=== PATIENT | male | born 2000 | race Caucasian/White ===

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

== ENCOUNTER 2018-01-23 07:40 | Emergency (ER) | payer OTHER ==
[2018-01-23 09:06] LABS: CONTROL LINE MONO INT CTR LINE PRESENT; MONO SCRN NEGATIVE (NEGATIVE)
== END 2018-01-23 09:20 | disposition home or self-care (01) ==
LOC: M ED 07:40
DX: J02.9 Acute pharyngitis, unspecified (principal); E11.9 Type 2 diabetes mellitus without complications; J45.909 Unspecified asthma, uncomplicated; E03.9 Hypothyroidism, unspecified; F32.9 Major depressive disorder, single episode, unspecified; R69 Illness, unspecified; M54.9 Dorsalgia, unspecified; F17.200 Nicotine dependence, unspecified, uncomplicated; Z79.4 Long term (current) use of insulin
CPT/HCPCS: 86308

== ENCOUNTER → 2018-07-02 | Outpatient (REF) | payer OTHER ==
[~2018-07-02] MED LIST changes: -ACET1TAB17 PO; +ACET1TAB55 PO; +AMOX500T PO; +DOXY100T PO; +INSUHUMDS SC; +NAPR-885 PO; +ROBA500T PO; +ZOFR4TAB14 PO
== END ==
LOC: M LAB REF 17:19
PROVIDERS: ATTEND Physician Assistant Medical
DX: J02.9 Acute pharyngitis, unspecified (principal)

== ENCOUNTER 2018-08-21 14:00 | Emergency (ER) | payer OTHER ==
[~2018-08-21] VITALS: Ht 175.3 cm; Wt 60.6 kg
[2018-08-21] MEDS ORDERED: TRES1INJ2 SQ (14:26)
[2018-08-21] MEDS ORDERED: LEVO50TA5 PO (14:26)
[2018-08-21 17:15] VITALS: BP 123/61
== END 2018-08-21 17:15 | disposition home or self-care (01) ==
LOC: M ED 14:00
DX: F32.9 Major depressive disorder, single episode, unspecified (principal); Z79.4 Long term (current) use of insulin; Z79.899 Other long term (current) drug therapy; Z88.0 Allergy status to penicillin

== ENCOUNTER 2019-06-20 08:45 | Inpatient (IN) | payer OTHER, SELFPAY ==
[~2019-06-20] VITALS: Ht 175.3 cm; Wt 57.0 kg
[~2019-06-20 08:45] MED LIST changes: +LEVO50TA5 PO; +TRES1INJ2 SQ
[2019-06-20] MEDS ORDERED: NS 1,000 ML IV ONE ×2 (09:00→10:15)
[2019-06-20] MEDS ORDERED: NOVOINJ3 SC (09:10)
[2019-06-20 10:09] LABS: VENOUS BASE EXCESS -14.3 (-2.0-2.0); VENOUS HCO3 11.2 MEQ/L (23.0-27.0); VENOUS O2 SATURATION 77.6 % (60.0-80.0); VENOUS PARTIAL PRESSURE CO2 26.9 mmHg (38.0-50.0); VENOUS PARTIAL PRESSURE O2 45.3 mmHg (30.0-50.0); VENOUS PH 7.236 UNITS (7.330-7.430); VENOUS STANDARD HCO3 13.5 MEQ/L
[2019-06-20] MEDS ORDERED: INSULIN IV RATE CHANGE DOCUMENTATION ML/HR XX SCH (10:15)
[2019-06-20] MEDS ORDERED: INSULIN HUMAN REGULAR 100 UNITS in NS 99 ML IV SCH ×4 (10:15→12:17)
--- NOTE | 2019-06-20 10:19 | REP ---
CHEST SINGLE VIEW: There is no evidence of acute infiltrate. No pleural effusion is seen. The heart is normal in size. The mediastinal silhouette is unremarkable. The visualized osseous structures are intact. IMPRESSION: No acute pulmonary disease. Electronically Signed by Marco Antonio Rosado MD 06/20/2019 10:36 A
[2019-06-20 10:22] LABS: BASO # 0.1 10^3/uL (0.0-0.2); EOS # 0.1 10^3/uL (0.0-0.5); EOS % 0.9 % (0.0-3.0); HEMATOCRIT 49.8 % (42.0-52.0); HEMOGLOBIN 17.6 g/dl (13.5-17.5); LYMPH # 1.6 10^3/uL (1.5-5.0); LYMPH % 23.6 % (24.0-44.0); MEAN CORPUSCULAR HEMOGLOBIN 34.4 pg (27.0-33.0); MEAN CORPUSCULAR HGB CONC 35.3 g/dl (32.0-36.5); MEAN CORPUSCULAR VOLUME 97.5 fl (80.0-96.0); MONO # 0.5 10^3/uL (0.0-0.8); NEUTROPHILS # 4.5 10^3/uL (1.5-8.5); NEUTROPHILS % 66.5 % (36.0-66.0); PLATELET COUNT, AUTOMATED 464 10^3/uL (150-450); RED BLOOD COUNT 5.11 10^6/uL (4.30-6.10); WHITE BLOOD COUNT 6.7 10^3/uL (4.0-10.0)
[2019-06-20] MEDS ORDERED: D5W/0.45% SODIUM CHLORIDE 1,000 ML IV SCH ×2 (10:30→12:00)
[2019-06-20 10:55] LABS: ACETONE/KETONE > 46.00 MG/DL (<2.81); ALBUMIN 3.9 GM/DL (3.2-5.2); ALT/SGPT 64 U/L (12-78); BILIRUBIN,DIRECT 0.2 MG/DL (0.0-0.2); BILIRUBIN,TOTAL 0.8 MG/DL (0.2-1.0); BLOOD UREA NITROGEN 13 MG/DL (7-18); CALCIUM LEVEL 9.5 MG/DL (8.5-10.1); CARBON DIOXIDE LEVEL 12 MEQ/L (21-32); CHLORIDE LEVEL 104 MEQ/L (98-107); GLOMERULAR FILTRATION RATE > 60.0 (>60); GLUCOSE, FASTING 189 MG/DL (70-100); LIPASE 44 U/L (73-393); MAGNESIUM LEVEL 2.2 MG/DL (1.8-2.4); PHOSPHORUS LEVEL 3.3 MG/DL (2.5-4.9); POTASSIUM SERUM 4.2 MEQ/L (3.5-5.1); SODIUM LEVEL 138 MEQ/L (136-145); TOTAL PROTEIN 7.4 GM/DL (6.4-8.2)
[2019-06-20 11:14] LABS: HEMOGLOBIN A1c 10.4 %
--- NOTE | 2019-06-20 11:57 | HPEPDOC ---
[facility] Medical History & Physical Date of Admission Jun 20, 2019 Date of Service: Jun 20, 2019 History and Physical CHIEF COMPLAINT: nausea, vomiting HISTORY OF PRESENT ILLNESS: 19 yo male with PMHx type 1 DM, presents for several day history of nausea, progressing to vomiting, decreased oral intake. States his blood sugar was 466 at home. States he just moved back to [place] from [place]. Moved to [place] last October. Has been in DKA before, here at [facility] 2 years ago. Denies medical non-compliance. Denies any other medical complaints. PAST MEDICAL HISTORY: #type 1 DM ALLERGIES: Please see below. REVIEW OF SYSTEMS: Negative except as per HPI. HOME MEDICATIONS: Please see below. PHYSICAL EXAMINATION: VITAL SIGNS: See below General: NAD, lying comfortably in bed HEENT: NC/AT, EOMI, PERRL Lungs: CTA B/L Heart: +S1S2, RRR Abd: soft, NT, +BS Ext: no edema Skin: # tattoos LABORATORY DATA: See below. MICROBIOLOGY: Please see below. ASSESSMENT: 19 yo male with PMHx type 1 DM for DKA #DKA - ICU admit - insulin gtt - BMP q2h - D51/2 NS - clear liquid diet Vital Signs Vital Signs Date Time Temp Pulse Resp B/P (MAP) Pulse Ox O2 Delivery O2 Flow Rate FiO2 06/20/19 10:29 105 124/73 (90) 100 06/20/19 09:47 Room Air 06/20/19 09:42 24 06/20/19 08:56 99.1 Laboratory Data Labs 24H Laboratory Tests 2 06/20/19 09:00: Bedside Glucose (Misc Panel) 367H 06/20/19 09:33: POC Glucose (Misc Panel) 221H, POC Sodium (Misc Panel) 135L, POC Potassium (Misc Panel) 6.9*H, POC Chloride (Misc Panel) 108, POC Total CO2 (Misc Panel) 11.0L, POC Blood Urea Nitrogen (Misc Panel 16, POC Ionized Calcium (Misc Panel) 4.3L, POC Creatinine (Misc Panel) 0.7, POC Hematocrit (Misc Panel) 52.0H 06/20/19 09:37: Immature Granulocyte % (Auto) 1.0, Neutrophils (%) (Auto) 66.5H, Lymphocytes (%) (Auto) 23.6L, Monocytes (%) (Auto) 7.0H, Eosinophils (%) (Auto) 0.9, Basophils (%) (Auto) 1.0, Neutrophils # (Auto) 4.5, Lymphocytes # (Auto) 1.6, Monocytes # (Auto) 0.5, Eosinophils # (Auto) 0.1, Basophils # (Auto) 0.1, Nucleated Red Blood Cells % (auto) 0.0, Blood Gas Bicarbonate Standard 13.5, Venous Blood pH 7.236L, Venous Blood Partial Pressure CO2 26.9L, Venous Blood Partial Pressure O2 45.3, Venous Blood Total Carbon Dioxide 12.0L, Venous Blood HCO3 11.2L, Venous Blood Oxygen Saturation 77.6, Venous Blood Base Excess -14.3L 06/20/19 09:38: Anion Gap 22H, Glomerular Filtration Rate > 60.0, Estimated Mean Plasma Glucose 252H, Hemoglobin A1c 10.4, Calcium Level 9.5, Phosphorus Level 3.3, Magnesium Level 2.2, Total Bilirubin 0.8, Direct Bilirubin 0.2, Aspartate Amino Transf (AST/SGOT) 56H, Alanine Aminotransferase (ALT/SGPT) 64, Alkaline Phosphatase 161H, Total Protein 7.4, Albumin 3.9, Albumin/Globulin Ratio 1.11, Lipase 44L, B-Hydroxybutyrate > 46.00H 06/20/19 10:03: Bedside Glucose (Misc Panel) 149H 06/20/19 10:59: Bedside Glucose (Misc Panel) 176H CBC/BMP Laboratory Tests 06/20/19 09:37 06/20/19 09:38 Microbiology Microbiology 06/20/19 Blood Culture, Received Pending 06/20/19 Blood Culture, Received Pending Home Medications Scheduled Insulin Aspart (Novolog Flexpen) 100 Unit/1 Ml Insuln.pen, 1 DOSE SC AC per sliding scale Insulin Degludec (Tresiba Flextouch U-100) 100 Unit/1 Ml Insuln.pen, 25 UNITS SQ QHS Allergies Coded Allergies: amoxicillin (Verified Allergy, Intermediate, hives, 08/21/18) A-FIB/CHADSVASC A-FIB History Current/History of A-Fib/PAF?: No Current PO Anticoag Therapy: No VALERIO SOLOMON MD Jun 20, 2019 11:57
--- NOTE | 2019-06-20 12:21 | ECGEPIP ---
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
[2019-06-20 13:42] LABS: VENOUS BASE EXCESS -17.3 (-2.0-2.0); VENOUS HCO3 8.5 MEQ/L (23.0-27.0); VENOUS O2 SATURATION 97.4 % (60.0-80.0); VENOUS PARTIAL PRESSURE CO2 21.8 mmHg (38.0-50.0); VENOUS PH 7.208 UNITS (7.330-7.430); VENOUS STANDARD HCO3 11.9 MEQ/L; VENOUS TOTAL CO2 9.2 MEQ/L (24.0-28.0)
[2019-06-20] MEDS: INSULIN IV RATE CHANGE DOCUMENTATION ML/HR XX SCH ×3 (13:57→15:58)
[2019-06-20 14:14] VITALS: BP 112/71
[2019-06-20 14:17] LABS: BLOOD UREA NITROGEN 10 MG/DL (7-18); CALCIUM LEVEL 8.1 MG/DL (8.5-10.1); CARBON DIOXIDE LEVEL 10 MEQ/L (21-32); CHLORIDE LEVEL 110 MEQ/L (98-107); CREATININE FOR GFR 1.18 MG/DL (0.70-1.30); GLOMERULAR FILTRATION RATE > 60.0 (>60); GLUCOSE, FASTING 204 MG/DL (70-100); POTASSIUM SERUM 3.2 MEQ/L (3.5-5.1); SODIUM LEVEL 140 MEQ/L (136-145)
[2019-06-20] MEDS: PANTOPRAZOLE 40MG INJ (PROTONIX) (C9113) IV SCH (14:31)
[2019-06-20] MEDS ORDERED: POTASSIUM CHLORIDE 10% LIQ 20 MEQ/15 ML UDC PO ONE (15:00)
[2019-06-20 15:57] LABS: BLOOD UREA NITROGEN 9 MG/DL (7-18); CALCIUM LEVEL 7.7 MG/DL (8.5-10.1); CARBON DIOXIDE LEVEL 16 MEQ/L (21-32); CHLORIDE LEVEL 110 MEQ/L (98-107); CREATININE FOR GFR 1.22 MG/DL (0.70-1.30); GLOMERULAR FILTRATION RATE > 60.0 (>60); GLUCOSE, FASTING 93 MG/DL (70-100); POTASSIUM SERUM 3.6 MEQ/L (3.5-5.1); SODIUM LEVEL 140 MEQ/L (136-145)
[2019-06-20 16:00] VITALS: BP 115/70
[2019-06-20] MEDS ORDERED: DEXTROSE 50% 50 ML SYRINGE IV PRN (16:15)
[2019-06-20] MEDS ORDERED: GLUCOSE 4 GM CHEW TABLET PO PRN (16:15)
[2019-06-20] MEDS ORDERED: GLUCAGON FOR INJ 1 MG VIAL (J1610) SC PRN (16:15)
[2019-06-20] MEDS ORDERED: NS 1,000 ML IV SCH (16:30)
[2019-06-20] MEDS ORDERED: LEVEMIR (INSULIN DETEMIR) 1 UNITS/0.01ML SC ONE (17:00)
[2019-06-20] MEDS: HumaLOG INSULIN (NovoLOG) PER UNIT SC SCH (17:13)
[2019-06-20 19:06] LABS: BLOOD UREA NITROGEN 8 MG/DL (7-18); CALCIUM LEVEL 7.9 MG/DL (8.5-10.1); CARBON DIOXIDE LEVEL 20 MEQ/L (21-32); CHLORIDE LEVEL 110 MEQ/L (98-107); CREATININE FOR GFR 1.32 MG/DL (0.70-1.30); GLOMERULAR FILTRATION RATE > 60.0 (>60); GLUCOSE, FASTING 107 MG/DL (70-100); POTASSIUM SERUM 3.2 MEQ/L (3.5-5.1); SODIUM LEVEL 139 MEQ/L (136-145)
[2019-06-20 20:00] VITALS: BP 105/55
[2019-06-20] MEDS: KCL 40MEQ in NS 1000ML 1,000 ML IV SCH (20:11)
[2019-06-20] MEDS ORDERED: LEVEMIR (INSULIN DETEMIR) 1 UNITS/0.01ML SC SCH (21:00)
[2019-06-20] MEDS ORDERED: HumaLOG INSULIN (NovoLOG) PER UNIT SC SCH (21:00)
[2019-06-21] VITALS: BP 110/74
[2019-06-21 00:46] LABS: BLOOD UREA NITROGEN 7 MG/DL (7-18); CALCIUM LEVEL 8.6 MG/DL (8.5-10.1); CARBON DIOXIDE LEVEL 25 MEQ/L (21-32); CHLORIDE LEVEL 109 MEQ/L (98-107); CREATININE FOR GFR 1.19 MG/DL (0.70-1.30); GLOMERULAR FILTRATION RATE > 60.0 (>60); GLUCOSE, FASTING 81 MG/DL (70-100); SODIUM LEVEL 140 MEQ/L (136-145)
[2019-06-21 00:47] LABS: POTASSIUM SERUM 4.1 MEQ/L (3.5-5.1)
[2019-06-21] MEDS ORDERED: ACETAMINOPHEN TAB 650MG DOSE (2X325MG) PO ONE (03:00)
[2019-06-21 04:00] VITALS: BP 112/60
[2019-06-21 05:29] LABS: HEMATOCRIT 37.2 % (42.0-52.0); MEAN CORPUSCULAR HEMOGLOBIN 34.1 pg (27.0-33.0); MEAN CORPUSCULAR HGB CONC 35.5 g/dl (32.0-36.5); MEAN CORPUSCULAR VOLUME 96.1 fl (80.0-96.0); RED BLOOD COUNT 3.87 10^6/uL (4.30-6.10); WHITE BLOOD COUNT 6.1 10^3/uL (4.0-10.0)
[2019-06-21 05:47] LABS: HEMOGLOBIN 13.2 g/dl (13.5-17.5); PLATELET COUNT, AUTOMATED 315 10^3/uL (150-450)
[2019-06-21 06:01] LABS: BLOOD UREA NITROGEN 6 MG/DL (7-18); CALCIUM LEVEL 8.1 MG/DL (8.5-10.1); CARBON DIOXIDE LEVEL 26 MEQ/L (21-32); CHLORIDE LEVEL 112 MEQ/L (98-107); CREATININE FOR GFR 0.96 MG/DL (0.70-1.30); GLOMERULAR FILTRATION RATE > 60.0 (>60); GLUCOSE, FASTING 39 MG/DL (70-100); POTASSIUM SERUM 3.1 MEQ/L (3.5-5.1); SODIUM LEVEL 143 MEQ/L (136-145)
[2019-06-21] MEDS: KCL 40MEQ in NS 1000ML 1,000 ML IV SCH (06:13)
[2019-06-21] MEDS: POTASSIUM CHLORIDE 10 MEQ SR TABLET PO SCH ×2 (06:45→09:00)
[2019-06-21 08:00] VITALS: BP 114/76
[2019-06-21 08:11] LABS: MAGNESIUM LEVEL 1.8 MG/DL (1.8-2.4)
[2019-06-21] MEDS: PANTOPRAZOLE 40MG INJ (PROTONIX) (C9113) IV SCH (08:59)
[2019-06-21] MEDS: HumaLOG INSULIN (NovoLOG) PER UNIT SC SCH (08:59)
--- NOTE | 2019-06-21 11:18 | DS.PDOC ---
Discharge Summary General Date of Admission Jun 20, 2019 at 11:08 Date of Discharge 06/21/19 Discharge Summary PROCEDURES PERFORMED DURING STAY: [None]. ADMITTING DIAGNOSES: 1. DKA DISCHARGE DIAGNOSES: 1. DKA 2. electrolyte disturbance 3. medical non-compliance COMPLICATIONS/CHIEF COMPLAINT: Diabetic Ketoacidoses. Hospital Course: 19 yo male with PMHx type 1 DM, presents for several day history of nausea, progressing to vomiting, decreased oral intake. States his blood sugar was 466 at home. States he just moved back to [place] from [place]. Moved to [place] last October. Has been in DKA before, here at [facility] 2 years ago. Denies medical non-compliance. Denied any other medical complaints. DKA resolved with insulin gtt, electrolyte abnormalities improved. Patient on hospital day 2 adamant to leave, concerned about billing and ability to pay. Discussed at length at bedside regarding importance of staying in the hospital. Patient decided to leave against medical advice. Risks explained, including possible , patient voiced understanding. DISCHARGE MEDICATIONS: Please see below. ALLERGIES: Please see below. PHYSICAL EXAMINATION ON DISCHARGE: VITAL SIGNS: See below General: NAD, lying comfortably in bed HEENT: NC/AT, EOMI, PERRL Lungs: CTA B/L Heart: +S1S2, RRR Abd: soft, NT, +BS Ext: no edema Skin: # tattoos LABORATORY DATA: Please see below. ACTIVITY: [As tolerated]. DIET: carb consistent DISPOSITION: 07 Against Medical Advice. ITEMS TO FOLLOWUP ON ON OUTPATIENT: 1. Follow up with PCP in 3-5 days. 2. Recommend repeat BMP and magnesium in 3-5 days, to follow with PCP. TIME SPENT ON DISCHARGE: 35 minutes. Vital Signs/I&Os Vital Signs Date Time Temp Pulse Resp B/P (MAP) Pulse Ox O2 Delivery O2 Flow Rate FiO2 06/21/19 08:00 98.3 86 18 114/76 (89) 99 Room Air I&O- Last 24 Hours up to 6 AM 06/21/19 06:00 Intake Total 6088 ml Output Total 2200 ml Balance 3888 ml Laboratory Data Labs 24H Laboratory Tests 2 06/20/19 11:59: Bedside Glucose (Misc Panel) 251H 06/20/19 13:00: Bedside Glucose (Misc Panel) 298H 06/20/19 13:33: Blood Gas Puncture Site UNKNOWN, Blood Gas Bicarbonate Standard 11.9, Venous Blood pH 7.208L, Venous Blood Partial Pressure CO2 21.8L, Venous Blood Partial Pressure O2 106.0H, Venous Blood Total Carbon Dioxide 9.2L, Venous Blood HCO3 8.5L, Venous Blood Oxygen Saturation 97.4H, Venous Blood Base Excess -17.3L, Anion Gap 20H, Glomerular Filtration Rate > 60.0, Calcium Level 8.1L 06/20/19 13:56: Bedside Glucose (Misc Panel) 161H 06/20/19 14:58: Bedside Glucose (Misc Panel) 102 06/20/19 15:15: Anion Gap 14, Glomerular Filtration Rate > 60.0, Calcium Level 7.7L, Magnesium Level 1.8 06/20/19 15:52: Bedside Glucose (Misc Panel) 98 06/20/19 17:10: Bedside Glucose (Misc Panel) 147H 06/20/19 18:28: Anion Gap 9, Glomerular Filtration Rate > 60.0, Calcium Level 7.9L 06/20/19 20:54: Bedside Glucose (Misc Panel) 45L 06/20/19 20:59: Bedside Glucose (Misc Panel) 44L 06/20/19 21:17: Bedside Glucose (Misc Panel) 67L 06/21/19 00:02: Anion Gap 6L, Glomerular Filtration Rate > 60.0, Calcium Level 8.6 06/21/19 04:47: Anion Gap 5L, Glomerular Filtration Rate > 60.0, Calcium Level 8.1L, Nucleated Red Blood Cells % (auto) 0.0, Magnesium Level 1.8 06/21/19 04:50: Bedside Glucose (Misc Panel) 38*L 06/21/19 05:17: Bedside Glucose (Misc Panel) 83 CBC/BMP Laboratory Tests 06/20/19 13:33 06/20/19 15:15 06/20/19 18:28 06/21/19 00:02 06/21/19 04:47 FSBS Laboratory Tests Test 06/20/19 11:59 06/20/19 13:00 06/20/19 13:56 06/20/19 14:58 Range/Units Bedside Glucose (Misc Panel) 251 298 161 102 70-105 MG/DL Test 06/20/19 15:52 06/20/19 17:10 06/20/19 20:54 06/20/19 20:59 Range/Units Bedside Glucose (Misc Panel) 98 147 45 44 70-105 MG/DL Test 06/20/19 21:17 06/21/19 04:50 06/21/19 05:17 Range/Units Bedside Glucose (Misc Panel) 67 38 83 70-105 MG/DL Microbiology Microbiology 06/20/19 Blood Culture - Preliminary, Resulted No growth after 24 hours . All specim... 06/20/19 Blood Culture - Preliminary, Resulted No growth after 24 hours . All specim... Discharge Medications Scheduled Insulin Aspart (Novolog Flexpen) 100 Unit/1 Ml Insuln.pen, 1 DOSE SC AC, (Reported) per sliding scale Insulin Degludec (Tresiba Flextouch U-100) 100 Unit/1 Ml Insuln.pen, 25 UNITS SQ QHS, (Reported) Allergies Coded Allergies: amoxicillin (Verified Allergy, Intermediate, hives, 08/21/18) VALERIO SOLOMON MD Jun 21, 2019 11:18
[2019-06-21] MEDS ORDERED: LEVEMIR (INSULIN DETEMIR) 1 UNITS/0.01ML SC SCH (21:00)
== END 2019-06-21 10:25 | disposition left against medical advice (07) | DRG 420 ==
LOC: EDBD 08:45 → M ED 08:45 → M ED INP 11:08 → ENRESERV 11:56 → M ICU 13:35
PROVIDERS: ADMIT Internal Medicine; ATTEND Internal Medicine
DX: E10.10 Type 1 diabetes mellitus with ketoacidosis without coma (principal); E87.8 Other disorders of electrolyte and fluid balance, not elsewhere classified; Z79.4 Long term (current) use of insulin; Z88.1 Allergy status to other antibiotic agents; Z91.14 Patient's other noncompliance with medication regimen

== ENCOUNTER 2019-07-09 10:40 | Emergency (ER) | payer MEDICAID, SELFPAY ==
[~2019-07-09] VITALS: Ht 175.3 cm; Wt 64.2 kg
[~2019-07-09 10:40] MED LIST changes: +CYCL-707 PO; -CYCL10TA PO; +NOVOINJ3 SC
[2019-07-09 10:41] VITALS: BP 121/73
[2019-07-09] MEDS ORDERED: KETOROLAC TROMETHAMINE 10 MG TAB PO ONE (11:00)
[2019-07-09] MEDS ORDERED: NORC1TAB7 PO (12:00)
[2019-07-09] MEDS ORDERED: KETO10TAB PO (12:00)
--- NOTE | 2019-07-09 12:04 | REP ---
REASON: Pain after trauma. There is a distal clavicular fracture. The glenohumeral relationship is within normal limits. IMPRESSION: Distal clavicular fracture. Electronically Signed by Anjum Rosales DO 07/09/2019 12:06 P
--- NOTE | 2019-07-09 12:05 | REP ---
REASON: Trauma. There is a distal clavicular fracture. Three views of the right ribs snow no additional fractures. The accompanying frontal view of the chest is within normal limits. IMPRESSION: Distal clavicular fracture. Electronically Signed by Anjum Rosales DO 07/09/2019 02:49 P
--- NOTE | 2019-07-09 12:06 | REP ---
REASON: Pain after trauma. There is a fracture of the distal clavicle. Electronically Signed by Anjum Rosales DO 07/09/2019 02:49 P
== END 2019-07-09 12:10 | disposition home or self-care (01) ==
LOC: M ED 10:40
DX: S42.001A Fracture of unspecified part of right clavicle, initial encounter for closed fracture (principal); X58.XXXA Exposure to other specified factors, initial encounter; Y92.410 Unspecified street and highway as the place of occurrence of the external cause; Y93.51 Activity, roller skating (inline) and skateboarding; Y99.9 Unspecified external cause status; E10.9 Type 1 diabetes mellitus without complications; R56.9 Unspecified convulsions; J45.909 Unspecified asthma, uncomplicated; E03.9 Hypothyroidism, unspecified; F41.9 Anxiety disorder, unspecified; F17.200 Nicotine dependence, unspecified, uncomplicated; Z79.4 Long term (current) use of insulin; Z79.899 Other long term (current) drug therapy; Z88.0 Allergy status to penicillin

== ENCOUNTER 2021-08-07 11:03 | Inpatient (IN) | payer OTHER, MEDICAID ==
[~2021-08-07] VITALS: Ht 175.3 cm; Wt 58.0 kg
[~2021-08-07 11:03] MED LIST changes: +KETO10TAB PO; +NORC1TAB7 PO; +PANTOPRAZOLE 40MG VIAL IV SCH
[2021-08-07] MEDS ORDERED: HALOPERIDOL 5MG/ML VIAL (J1630 PER 1) IV STA (12:09)
[2021-08-07] MEDS ORDERED: NS 1,000 ML IV ONE (12:10)
[2021-08-07 13:04] LABS: VENOUS BASE EXCESS -10.9 (-2.0-2.0); VENOUS HCO3 15.2 MEQ/L (23.0-27.0); VENOUS O2 SATURATION 86.2 % (60.0-80.0); VENOUS PARTIAL PRESSURE CO2 34.9 mmHg (38.0-50.0); VENOUS PARTIAL PRESSURE O2 55.1 mmHg (30.0-50.0); VENOUS PH 7.256 UNITS (7.330-7.430); VENOUS STANDARD HCO3 15.9 MEQ/L; VENOUS TOTAL CO2 16.2 MEQ/L (24.0-28.0)
[2021-08-07 13:15] LABS: BASO # 0.1 10^3/uL (0.0-0.2); BASO % 1.1 % (0.0-1.0); EOS # 0.5 10^3/uL (0.0-0.5); EOS % 4.6 % (0.0-3.0); HEMATOCRIT 45.4 % (42.0-52.0); HEMOGLOBIN 16.2 g/dl (13.5-17.5); LYMPH # 2.7 10^3/uL (1.5-5.0); LYMPH % 23.3 % (24.0-44.0); MEAN CORPUSCULAR HEMOGLOBIN 31.8 pg (27.0-33.0); MEAN CORPUSCULAR HGB CONC 35.7 g/dl (32.0-36.5); MONO # 0.5 10^3/uL (0.0-0.8); MONO % 4.5 % (2.0-8.0); NEUTROPHILS # 7.6 10^3/uL (1.5-8.5); NEUTROPHILS % 66.1 % (36.0-66.0); PLATELET COUNT, AUTOMATED 375 10^3/uL (150-450); WHITE BLOOD COUNT 11.5 10^3/uL (4.0-10.0)
[2021-08-07] MEDS ORDERED: METOCLOPRAMIDE INJ 10MG/2ML VIAL (J2765 PER 1) IV ONE (13:40)
[2021-08-07 13:49] LABS: HEMOGLOBIN A1c 4.7 %
[2021-08-07 13:52] LABS: ALBUMIN 4.5 GM/DL (3.2-5.2); ALT/SGPT 17 U/L (12-78); BILIRUBIN,DIRECT 0.3 MG/DL (0.0-0.2); BLOOD UREA NITROGEN 20 MG/DL (7-18); CALCIUM LEVEL 10.2 MG/DL (8.5-10.1); CARBON DIOXIDE LEVEL 17 MEQ/L (21-32); CHLORIDE LEVEL 98 MEQ/L (98-107); CREATININE FOR GFR 1.07 MG/DL (0.70-1.30); GLOMERULAR FILTRATION RATE > 60.0 (>60); GLUCOSE, FASTING 497 MG/DL (70-100); POTASSIUM SERUM 4.4 MEQ/L (3.5-5.1); SODIUM LEVEL 134 MEQ/L (136-145); TOTAL PROTEIN 7.4 GM/DL (6.4-8.2)
[2021-08-07 13:54] LABS: ACETONE/KETONE > 46.00 MG/DL (<2.81); LIPASE 67 U/L (73-393)
[2021-08-07] MEDS ORDERED: INSULIN IV RATE CHANGE DOCUMENTATION ML/HR XX SCH ×2 (14:00→15:05)
[2021-08-07] MEDS ORDERED: INSULIN REGULAR IN 0.9 % NACL 100 UNIT in IV 1 EA IV SCH ×4 (14:00→15:05)
[2021-08-07] MEDS ORDERED: HumuLIN R (REGULAR) INSULIN (NovoLIN R) **100U/ML** PER UNIT IV ONE (14:00)
[2021-08-07 14:47] LABS: OSMOLALITY SERUM 312 MOSM/KG (275-295)
[2021-08-07 14:56] LABS: APPEARANCE, URINE CLEAR (CLEAR); BACTERIA, URINE AUTO NEGATIVE (NEGATIVE); BILIRUBIN, URINE AUTO NEGATIVE (NEGATIVE); BLOOD, URINE BLOOD NEGATIVE (NEGATIVE); COLOR, URINE STRAW (YELLOW); GLUCOSE, URINE (UA) AUTO 3+ mg/dL (NEGATIVE); KETONE, URINE AUTO 2+ mg/dL (NEGATIVE); LEUKOCYTE ESTERASE, URINE AUTO NEGATIVE (NEGATIVE); NITRITE, URINE AUTO NEGATIVE (NEGATIVE); PROTEIN, URINE AUTO NEGATIVE (NEGATIVE); RBC, URINE AUTO 0 /HPF (0-3); SQUAMOUS EPITHELIAL CELL UR AU 0 /HPF (0-6); UROBILINOGEN, URINE AUTO 0.2 mg/dL (0.0-2.0); WBC, URINE AUTO 1 /HPF (0-3)
[2021-08-07 15:46] LABS: AMPHETAMINES LEVEL URINE NEGATIVE (NEGATIVE); BARBITURATES URINE NEGATIVE (NEGATIVE); BENZODIAZEPINES URINE NEGATIVE (NEGATIVE); CANNABINOIDS URINE POSITIVE (NEGATIVE); COCAINE METABOLITE URINE NEGATIVE (NEGATIVE); METHADONE URINE NEGATIVE (NEGATIVE); OPIATES URINE NEGATIVE (NEGATIVE); PHENCYCLIDINE URINE NEGATIVE (NEGATIVE)
[2021-08-07] MEDS ORDERED: POTASSIUM CHLORIDE INJ 20 MEQ in NS 0.45% 1,000 ML IV SCH (16:00)
[2021-08-07 16:14] LABS: RSV AMPLIFICATION NEGATIVE (NEGATIVE)
[2021-08-07 16:45] LABS: VENOUS BASE EXCESS -15.3 (-2.0-2.0); VENOUS HCO3 12.2 MEQ/L (23.0-27.0); VENOUS O2 SATURATION 80.3 % (60.0-80.0); VENOUS PARTIAL PRESSURE CO2 34.7 mmHg (38.0-50.0); VENOUS PARTIAL PRESSURE O2 50.7 mmHg (30.0-50.0); VENOUS PH 7.165 UNITS (7.330-7.430); VENOUS STANDARD HCO3 12.9 MEQ/L; VENOUS TOTAL CO2 13.3 MEQ/L (24.0-28.0)
[2021-08-07] MEDS ORDERED: KCL 20MEQ IN 0.45NS 1000ML 1,000 ML IV SCH ×3 (16:52→17:15)
[2021-08-07 17:13] LABS: BLOOD UREA NITROGEN 19 MG/DL (7-18); CALCIUM LEVEL 9.4 MG/DL (8.5-10.1); CARBON DIOXIDE LEVEL 15 MEQ/L (21-32); CHLORIDE LEVEL 105 MEQ/L (98-107); CREATININE FOR GFR 1.08 MG/DL (0.70-1.30); GLOMERULAR FILTRATION RATE > 60.0 (>60); GLUCOSE, FASTING 372 MG/DL (70-100); PHOSPHORUS LEVEL 3.3 MG/DL (2.5-4.9); POTASSIUM SERUM 4.4 MEQ/L (3.5-5.1); SODIUM LEVEL 139 MEQ/L (136-145)
[2021-08-07] MEDS ORDERED: NS 1,000 ML IV SCH (17:15)
[2021-08-07] MEDS ORDERED: INSU100I36 SQ (17:17)
[2021-08-07] MEDS ORDERED: ADME100I2 SC (17:17)
[2021-08-07] MEDS ORDERED: HOME MED LIST COMPLETE! XX SCH (17:20)
[2021-08-07 18:00] VITALS: BP 120/55
[2021-08-07] MEDS ORDERED: METOCLOPRAMIDE INJ 10MG/2ML VIAL (J2765 PER 1) IV PRN (18:00)
[2021-08-07] MEDS ORDERED: KCL 20MEQ IN D5/0.45NS 1000ML 1,000 ML IV SCH (18:30)
[2021-08-07 19:00] VITALS: BP 101/60
[2021-08-07 19:20] LABS: VENOUS BASE EXCESS -10.2 (-2.0-2.0); VENOUS HCO3 16.5 MEQ/L (23.0-27.0); VENOUS O2 SATURATION 73.3 % (60.0-80.0); VENOUS PARTIAL PRESSURE CO2 39.5 mmHg (38.0-50.0); VENOUS PARTIAL PRESSURE O2 40.5 mmHg (30.0-50.0); VENOUS SITE NOT GIVEN; VENOUS TOTAL CO2 17.8 MEQ/L (24.0-28.0)
[2021-08-07 19:47] LABS: BLOOD UREA NITROGEN 18 MG/DL (7-18); CARBON DIOXIDE LEVEL 22 MEQ/L (21-32); CHLORIDE LEVEL 107 MEQ/L (98-107); CREATININE FOR GFR 1.02 MG/DL (0.70-1.30); GLOMERULAR FILTRATION RATE > 60.0 (>60); GLUCOSE, FASTING 131 MG/DL (70-100); MAGNESIUM LEVEL 2.2 MG/DL (1.8-2.4); PHOSPHORUS LEVEL 3.2 MG/DL (2.5-4.9); POTASSIUM SERUM 4.3 MEQ/L (3.5-5.1); SODIUM LEVEL 140 MEQ/L (136-145)
[2021-08-07 19:52] LABS: OSMOLALITY SERUM 296 MOSM/KG (275-295)
[2021-08-07 20:00] VITALS: BP 108/61
[2021-08-07 21:00] VITALS: BP 119/66
[2021-08-07] MEDS ORDERED: LIDOCAINE 5% (LIDODERM) PATCH TD SCH (21:00)
[2021-08-07] MEDS ORDERED: HEPARIN SOD (PORCINE) 5000UNITS/ML 1ML VIAL/SYRINGE SC SCH (22:00)
[2021-08-08] MEDS ORDERED: **NOTE PATIENT COMMENT** MISC XX SCH (09:00)
== END 2021-08-07 22:04 | disposition left against medical advice (07) | DRG 420 ==
LOC: M ED 11:03 → M ED INP 15:38 → ENRESERV 17:08 → M ICU 18:09
PROVIDERS: ADMIT Internal Medicine; ATTEND Internal Medicine
DX: E10.10 Type 1 diabetes mellitus with ketoacidosis without coma (principal); F12.10 Cannabis abuse, uncomplicated; Z91.14 Patient's other noncompliance with medication regimen; Z87.891 Personal history of nicotine dependence; Z79.4 Long term (current) use of insulin; Z88.1 Allergy status to other antibiotic agents; Z20.822 Contact with and (suspected) exposure to COVID-19; Z91.19 Patient's noncompliance with other medical treatment and regimen

== ENCOUNTER → 2021-08-12 | Outpatient (CLI) | payer OTHER, MEDICAID ==
[~2021-08-12] MED LIST changes: +ADME100I2 SC; +INSU100I36 SQ; -PANTOPRAZOLE 40MG VIAL IV SCH
[2021-08-12 17:23] LABS: BASO # 0.1 10^3/uL (0.0-0.2); BASO % 1.6 % (0.0-1.0); EOS # 1.6 10^3/uL (0.0-0.5); HEMATOCRIT 40.7 % (42.0-52.0); HEMOGLOBIN 14.2 g/dl (13.5-17.5); LYMPH # 2.4 10^3/uL (1.5-5.0); LYMPH % 34.4 % (24.0-44.0); MEAN CORPUSCULAR HEMOGLOBIN 31.6 pg (27.0-33.0); MEAN CORPUSCULAR HGB CONC 34.9 g/dl (32.0-36.5); MEAN CORPUSCULAR VOLUME 90.4 fl (80.0-96.0); MONO # 0.5 10^3/uL (0.0-0.8); MONO % 6.7 % (2.0-8.0); NEUTROPHILS # 2.3 10^3/uL (1.5-8.5); NEUTROPHILS % 33.9 % (36.0-66.0); PLATELET COUNT, AUTOMATED 368 10^3/uL (150-450); WHITE BLOOD COUNT 6.9 10^3/uL (4.0-10.0)
[2021-08-12 17:37] LABS: MALB URINE SIEMENS 6.8 MG/L; MAU/CREAT RATIO 6.5 MCG/MG (0.0-30.0)
[2021-08-12 17:43] LABS: ALBUMIN 3.8 GM/DL (3.2-5.2); ALT/SGPT 19 U/L (12-78); BILIRUBIN,TOTAL 0.8 MG/DL (0.2-1.0); BLOOD UREA NITROGEN 13 MG/DL (7-18); CARBON DIOXIDE LEVEL 31 MEQ/L (21-32); CHLORIDE LEVEL 103 MEQ/L (98-107); CREATININE FOR GFR 1.08 MG/DL (0.70-1.30); GLOMERULAR FILTRATION RATE > 60.0 (>60); GLUCOSE, FASTING 378 MG/DL (70-100); POTASSIUM SERUM 4.7 MEQ/L (3.5-5.1); SODIUM LEVEL 136 MEQ/L (136-145); TOTAL 25(OH) VITAMIN D 12.7 NG/ML (30.0-100.0); TOTAL PROTEIN 6.4 GM/DL (6.4-8.2)
[2021-08-12 17:50] LABS: HEMOGLOBIN A1c 11.4 %
[2021-08-12 18:17] LABS: EOS % 23.1 % (0.0-3.0)
== END ==
LOC: M PLALAB 15:05
PROVIDERS: ATTEND Physician Assistant
DX: E10.9 Type 1 diabetes mellitus without complications (principal)

== ENCOUNTER 2022-04-02 19:51 | Emergency (ER) | payer MEDICAID, OTHER ==
[~2022-04-02] VITALS: Ht 175.3 cm; Wt 130.0 kg
[2022-04-02] MEDS ORDERED: ONDA4TAB6 PO (22:12)
[2022-04-02] MEDS ORDERED: ONDANSETRON 4MG ORAL DISINTEGRATING TAB PO ONE (22:15)
[2022-04-02] MEDS ORDERED: KETOROLAC TROMETHAMINE 10 MG TAB PO ONE (22:15)
[2022-04-02 22:38] VITALS: BP 115/70
== END 2022-04-02 22:46 | disposition home or self-care (01) ==
LOC: M ED 19:51
DX: S06.0X1A Concussion with loss of consciousness of 30 minutes or less, initial encounter (principal); S16.1XXA Strain of muscle, fascia and tendon at neck level, initial encounter; W20.8XXA Other cause of strike by thrown, projected or falling object, initial encounter; Y92.511 Restaurant or cafe as the place of occurrence of the external cause; Y99.0 Civilian activity done for income or pay; E11.9 Type 2 diabetes mellitus without complications; F32.9 Major depressive disorder, single episode, unspecified; J45.909 Unspecified asthma, uncomplicated; E03.9 Hypothyroidism, unspecified; R56.9 Unspecified convulsions; F17.290 Nicotine dependence, other tobacco product, uncomplicated; Z79.4 Long term (current) use of insulin; Z88.0 Allergy status to penicillin

== ENCOUNTER 2022-04-06 12:41 | Emergency (ER) | payer OTHER ==
[~2022-04-06] VITALS: Ht 175.3 cm; Wt 59.5 kg
[~2022-04-06 12:41] MED LIST changes: +ONDA4TAB6 PO
[2022-04-06] MEDS ORDERED: NS 1,000 ML IV ONE (18:45)
[2022-04-06 19:07] LABS: BASO # 0.1 10^3/uL (0.0-0.2); BASO % 1.5 % (0.0-1.0); EOS # 1.1 10^3/uL (0.0-0.5); HEMOGLOBIN 15.5 g/dl (13.5-17.5); MEAN CORPUSCULAR HEMOGLOBIN 30.8 pg (27.0-33.0); MEAN CORPUSCULAR HGB CONC 33.7 g/dl (32.0-36.5); MEAN CORPUSCULAR VOLUME 91.3 fl (80.0-96.0); MONO # 0.5 10^3/uL (0.0-0.8); MONO % 6.8 % (2.0-8.0); NEUTROPHILS # 3.5 10^3/uL (1.5-8.5); NEUTROPHILS % 48.4 % (36.0-66.0); PLATELET COUNT, AUTOMATED 416 10^3/uL (150-450); RED BLOOD COUNT 5.04 10^6/uL (4.30-6.10); WHITE BLOOD COUNT 7.2 10^3/uL (4.0-10.0)
[2022-04-06 19:33] LABS: ALBUMIN 4.2 G/DL (3.2-5.2); BILIRUBIN,DIRECT 0.2 MG/DL (<0.4); BILIRUBIN,TOTAL 0.9 MG/DL (0.3-1.2); TOTAL PROTEIN 6.8 G/DL (5.7-8.2)
[2022-04-06] MEDS ORDERED: ACETAMINOPHEN 500 MG TAB PO ONE (20:00)
[2022-04-06] MEDS ORDERED: diphenhydrAMINE 50MG/ML VIAL IV ONE (20:00)
[2022-04-06] MEDS ORDERED: METOCLOPRAMIDE INJ 10MG/2ML VIAL IV ONE (20:05)
[2022-04-06] MEDS ORDERED: TOPIRAMATE (TopAMAX) 25 MG TAB PO ONE (20:10)
[2022-04-06] MEDS ORDERED: TOPA50TA8 PO (20:43)
[2022-04-06 21:12] VITALS: BP 112/62
== END 2022-04-06 21:13 | disposition home or self-care (01) ==
LOC: M ED 12:41
DX: S00.83XA Contusion of other part of head, initial encounter (principal); S06.0X0A Concussion without loss of consciousness, initial encounter; W20.8XXA Other cause of strike by thrown, projected or falling object, initial encounter; E10.65 Type 1 diabetes mellitus with hyperglycemia; Z88.0 Allergy status to penicillin; Z79.4 Long term (current) use of insulin

== ENCOUNTER 2022-07-08 10:13 | Emergency (ER) | payer OTHER ==
[~2022-07-08] VITALS: Ht 175.3 cm; Wt 61.4 kg
[~2022-07-08 10:13] MED LIST changes: +TOPA50TA8 PO
[2022-07-08 10:48] LABS: BASO # 0.2 10^3/uL (0.0-0.2); BASO % 2.3 % (0.0-1.0); EOS # 2.1 10^3/uL (0.0-0.5); HEMATOCRIT 42.4 % (42.0-52.0); HEMOGLOBIN 14.7 g/dl (13.5-17.5); LYMPH % 28.1 % (24.0-44.0); MEAN CORPUSCULAR HEMOGLOBIN 31.1 pg (27.0-33.0); MEAN CORPUSCULAR HGB CONC 34.7 g/dl (32.0-36.5); MEAN CORPUSCULAR VOLUME 89.8 fl (80.0-96.0); MONO # 0.5 10^3/uL (0.0-0.8); MONO % 6.5 % (2.0-8.0); NEUTROPHILS # 2.3 10^3/uL (1.5-8.5); NEUTROPHILS % 33.3 % (36.0-66.0); PLATELET COUNT, AUTOMATED 290 10^3/uL (150-450); RED BLOOD COUNT 4.72 10^6/uL (4.30-6.10)
[2022-07-08] MEDS ORDERED: D5W/0.45% SODIUM CHLORIDE 1,000 ML IV SCH (11:15)
[2022-07-08 11:18] LABS: ALBUMIN 3.8 G/DL (3.2-5.2); ALKALINE PHOSPHATASE 64 U/L (46-116); ALT/SGPT 13 U/L (7.0-40); AST/SGOT 16 U/L (<34); BILIRUBIN,DIRECT 0.2 MG/DL (<0.4); BILIRUBIN,TOTAL 0.6 MG/DL (0.3-1.2); BLOOD UREA NITROGEN 14 MG/DL (9-23); CALCIUM LEVEL 8.8 MG/DL (8.5-10.1); CARBON DIOXIDE LEVEL 24 MMOL/L (20-31); CHLORIDE LEVEL 109 MMOL/L (98-107); CREATININE FOR GFR 0.66 MG/DL (0.70-1.30); GLOMERULAR FILTRATION RATE > 60.0 (>60); GLUCOSE, FASTING 156 MG/DL (60-100); POTASSIUM SERUM 4.3 MMOL/L (3.5-5.1); SODIUM LEVEL 141 MMOL/L (136-145)
[2022-07-08 11:21] LABS: EOS % 29.5 % (0.0-3.0)
[2022-07-08] MEDS ORDERED: D10W 1,000 ML IV SCH (12:00)
[2022-07-08 15:45] VITALS: BP 123/68
== END 2022-07-08 15:52 | disposition home or self-care (01) ==
LOC: M ED 10:13 → EDBD 10:13 → M ED 15:52
DX: E10.649 Type 1 diabetes mellitus with hypoglycemia without coma (principal); F31.9 Bipolar disorder, unspecified; M54.50 Low back pain, unspecified; Z87.820 Personal history of traumatic brain injury; Z79.4 Long term (current) use of insulin; Z88.0 Allergy status to penicillin

== ENCOUNTER 2022-09-19 23:55 | Emergency (ER) | payer OTHER ==
[~2022-09-19] VITALS: Ht 170.2 cm; Wt 54.8 kg
[2022-09-19 23:57] VITALS: TEMP 97.7
[2022-09-20] MEDS ORDERED: ONDANSETRON 4MG 2ML VIAL IV ONE (00:30)
[2022-09-20] MEDS ORDERED: NS 1,000 ML IV ONE (00:30)
[2022-09-20 01:05] LABS: BASO # 0.1 10^3/uL (0.0-0.2); BASO % 1.2 % (0.0-1.0); EOS # 0.1 10^3/uL (0.0-0.5); EOS % 0.9 % (0.0-3.0); HEMOGLOBIN 15.6 g/dl (13.5-17.5); LYMPH # 1.2 10^3/uL (1.5-5.0); LYMPH % 11.5 % (24.0-44.0); MEAN CORPUSCULAR HEMOGLOBIN 31.4 pg (27.0-33.0); MEAN CORPUSCULAR HGB CONC 36.3 g/dl (32.0-36.5); MEAN CORPUSCULAR VOLUME 86.5 fl (80.0-96.0); MONO # 0.4 10^3/uL (0.0-0.8); MONO % 3.3 % (2.0-8.0); NEUTROPHILS # 8.9 10^3/uL (1.5-8.5); NEUTROPHILS % 82.7 % (36.0-66.0); RED BLOOD COUNT 4.97 10^6/uL (4.30-6.10); WHITE BLOOD COUNT 10.8 10^3/uL (4.0-10.0)
[2022-09-20 01:27] LABS: LIPASE 19 U/L (12-53)
[2022-09-20 01:29] LABS: ALBUMIN 5.3 G/DL (3.2-5.2); ALKALINE PHOSPHATASE 87 U/L (46-116); ALT/SGPT 18 U/L (7.0-40); AST/SGOT 17 U/L (<34); BILIRUBIN,DIRECT 0.5 MG/DL (<0.4); BILIRUBIN,TOTAL 1.5 MG/DL (0.3-1.2); BLOOD UREA NITROGEN 26 MG/DL (9-23); CALCIUM LEVEL 10.2 MG/DL (8.5-10.1); CARBON DIOXIDE LEVEL 25 MMOL/L (20-31); CHLORIDE LEVEL 96 MMOL/L (98-107); CREATININE FOR GFR 0.79 MG/DL (0.70-1.30); GLOMERULAR FILTRATION RATE > 60.0 (>60); GLUCOSE, FASTING 243 MG/DL (60-100); POTASSIUM SERUM 4.8 MMOL/L (3.5-5.1); SODIUM LEVEL 133 MMOL/L (136-145); TOTAL PROTEIN 7.8 G/DL (5.7-8.2)
[2022-09-20] MEDS ORDERED: ISOVUE-370 76% 100ML VIAL As Ordered ONE (01:45)
[2022-09-20 05:15] VITALS: BP 114/68; O2SAT 98
[2022-09-20] MEDS ORDERED: ONDA4TAB6 PO (05:18)
[2022-09-20] MEDS ORDERED: ONDANSETRON 4MG ORAL DISINTEGRATING TAB PO ONE (05:35)
== END 2022-09-20 05:55 | disposition home or self-care (01) ==
LOC: M ED 23:55
DX: R11.10 Vomiting, unspecified (principal); E11.9 Type 2 diabetes mellitus without complications; Z79.4 Long term (current) use of insulin; Z88.0 Allergy status to penicillin
CPT/HCPCS: 74177; 80048; 80076; 83690; 85025; 93041; 96361; 96374; 99285; J2405; Q9967

== ENCOUNTER → 2022-09-23 | Outpatient (CLI) | payer OTHER ==
[2022-09-23 14:30] LABS: BASO # 0.2 10^3/uL (0.0-0.2); BASO % 2.1 % (0.0-1.0); EOS # 1.3 10^3/uL (0.0-0.5); EOS % 16.1 % (0.0-3.0); HEMATOCRIT 45.6 % (42.0-52.0); HEMOGLOBIN 15.6 g/dl (13.5-17.5); LYMPH # 2.4 10^3/uL (1.5-5.0); LYMPH % 31.3 % (24.0-44.0); MEAN CORPUSCULAR HEMOGLOBIN 30.7 pg (27.0-33.0); MEAN CORPUSCULAR HGB CONC 34.2 g/dl (32.0-36.5); MEAN CORPUSCULAR VOLUME 89.8 fl (80.0-96.0); MONO # 0.5 10^3/uL (0.0-0.8); NEUTROPHILS # 3.4 10^3/uL (1.5-8.5); NEUTROPHILS % 43.4 % (36.0-66.0); PLATELET COUNT, AUTOMATED 354 10^3/uL (150-450); RED BLOOD COUNT 5.08 10^6/uL (4.30-6.10); WHITE BLOOD COUNT 7.8 10^3/uL (4.0-10.0)
[2022-09-23 14:37] LABS: C REACTIVE PROTEIN QUANTITATIV < 0.40 MG/DL (<1.0); LIPASE 39 U/L (12-53)
[2022-09-23 14:40] LABS: ALBUMIN 4.5 G/DL (3.2-5.2); ALKALINE PHOSPHATASE 72 U/L (46-116); ALT/SGPT 17 U/L (7.0-40); AST/SGOT < 8 U/L (<34); BILIRUBIN,TOTAL 1.1 MG/DL (0.3-1.2); BLOOD UREA NITROGEN 19 MG/DL (9-23); CALCIUM LEVEL 10.3 MG/DL (8.5-10.1); CARBON DIOXIDE LEVEL 31 MMOL/L (20-31); CHLORIDE LEVEL 103 MMOL/L (98-107); CREATININE FOR GFR 0.77 MG/DL (0.70-1.30); FREE T4 0.99 NG/DL (0.89-1.76); GLOMERULAR FILTRATION RATE > 60.0 (>60); GLUCOSE, FASTING 190 MG/DL (60-100); POTASSIUM SERUM 4.4 MMOL/L (3.5-5.1); SODIUM LEVEL 139 MMOL/L (136-145); THYROID STIMULATING HORMONE 6.248 uIU/ML (0.55-4.78); TOTAL PROTEIN 6.8 G/DL (5.7-8.2)
[2022-09-23 15:16] LABS: ERYTHROCYTE SEDIMENTATION RATE < 1 mm/hr (0-15)
[2022-09-23 15:23] LABS: HEMOGLOBIN A1c 10.8 % (4.0-6.0)
[2022-09-25 14:09] LABS: H PYLORI SERUM QUANT IgG ABY 0.15 (0.00-0.79); TISSUE TRANSGLUTAMINASE IgA <2 U/mL (0-3)
== END ==
LOC: M PLALAB 09:55
PROVIDERS: ATTEND Physician Assistant
DX: R10.9 Unspecified abdominal pain (principal); R11.2 Nausea with vomiting, unspecified; E10.9 Type 1 diabetes mellitus without complications; E02 Subclinical iodine-deficiency hypothyroidism

== ENCOUNTER → 2022-09-29 | Outpatient (CLI) | payer OTHER | LOC: M WHC 09:11 | PROVIDERS: ATTEND Physician Assistant | DX: N28.89 Other specified disorders of kidney and ureter (principal) ==

== ENCOUNTER → 2022-10-01 | Outpatient (REF) | payer OTHER | LOC: M SFHCPLAZ 16:53 | PROVIDERS: ATTEND Physician Assistant | DX: N28.89 Other specified disorders of kidney and ureter (principal) ==

== ENCOUNTER → 2022-10-12 | Outpatient (CLI) | payer OTHER ==
[~2022-10-12] MED LIST changes: +PROHANCE 279.3MG/ML 5ML VIAL ONE
== END ==
LOC: M PLAIMG 13:47
PROVIDERS: ATTEND Physician Assistant
DX: N28.89 Other specified disorders of kidney and ureter (principal)
CPT/HCPCS: 74183; A9576

== ENCOUNTER → 2023-04-21 | Outpatient (CLI) | payer OTHER ==
[~2023-04-21] MED LIST changes: -INSU100I36 SQ; +INSU100I60 SQ; -PROHANCE 279.3MG/ML 5ML VIAL ONE
[2023-04-21 14:06] LABS: HEMOGLOBIN 14.7 g/dl (13.5-17.5); MEAN CORPUSCULAR HEMOGLOBIN 31.4 pg (27.0-33.0); MEAN CORPUSCULAR VOLUME 89.7 fl (80.0-96.0); PLATELET COUNT, AUTOMATED 360 10^3/uL (150-450); RED BLOOD COUNT 4.68 10^6/uL (4.30-6.10); WHITE BLOOD COUNT 6.1 10^3/uL (4.0-10.0)
[2023-04-21 14:30] LABS: HEMOGLOBIN A1c 10.5 % (4.0-6.0)
[2023-04-21 14:39] LABS: C REACTIVE PROTEIN QUANTITATIV < 0.40 MG/DL (<1.0)
[2023-04-21 14:40] LABS: MAU/CREAT RATIO 3.4 MCG/MG (0.0-30.0)
[2023-04-21 14:41] LABS: ALBUMIN 3.9 G/DL (3.2-5.2); ALKALINE PHOSPHATASE 73 U/L (46-116); ALT/SGPT 13 U/L (7.0-40); AST/SGOT 16 U/L (<34); BILIRUBIN,TOTAL 0.7 MG/DL (0.3-1.2); BLOOD UREA NITROGEN 16 MG/DL (9-23); CARBON DIOXIDE LEVEL 31 MMOL/L (20-31); CHLORIDE LEVEL 112 MMOL/L (98-107); CHOLESTEROL LEVEL 142 MG/DL (<200); CHOLESTEROL RISK RATIO 2.97 (<5); CREATININE FOR GFR 0.69 MG/DL (0.70-1.30); GLOMERULAR FILTRATION RATE > 60.0 (>60); GLUCOSE, FASTING 83 MG/DL (60-100); HDL CHOLESTEROL 47.7 MG/DL (>40); LDL CHOLESTEROL 85.5 MG/DL (<100); NON-HDL-C 94.3 MG/DL; POTASSIUM SERUM 4.6 MMOL/L (3.5-5.1); SODIUM LEVEL 141 MMOL/L (136-145); TOTAL PROTEIN 6.3 G/DL (5.7-8.2); TRIGLYCERIDES LEVEL 44 MG/DL (<150)
[2023-04-21 14:42] LABS: THYROID STIMULATING HORMONE 4.493 uIU/ML (0.55-4.78); TOTAL 25(OH) VITAMIN D 16.2 NG/ML (20.0-100.0)
[2023-04-21 14:43] LABS: FREE T4 0.85 NG/DL (0.89-1.76); VITAMIN B12 LEVEL 731 PG/ML (211-911)
== END ==
LOC: M PLALAB 09:19
PROVIDERS: ATTEND Internal Medicine Hematology
DX: E10.65 Type 1 diabetes mellitus with hyperglycemia (principal)

== ENCOUNTER 2023-09-02 17:45 | Emergency (ER) | payer OTHER ==
[~2023-09-02] VITALS: Ht 175.3 cm; Wt 62.3 kg
[~2023-09-02 17:45] MED LIST changes: +ONDA-282 PO; -ONDA4TAB6 PO
[2023-09-02 17:53] VITALS: TEMP 96.3
[2023-09-02] MEDS ORDERED: BASA100I INJ (18:01)
[2023-09-02 18:22] LABS: BASO # 0.1 10^3/uL (0.0-0.2); BASO % 1.4 % (0.0-1.0); EOS % 10.4 % (0.0-3.0); HEMATOCRIT 38.8 % (42.0-52.0); HEMOGLOBIN 13.5 g/dl (13.5-17.5); LYMPH # 3.4 10^3/uL (1.5-5.0); LYMPH % 35.9 % (24.0-44.0); MEAN CORPUSCULAR HEMOGLOBIN 31.8 pg (27.0-33.0); MEAN CORPUSCULAR HGB CONC 34.8 g/dl (32.0-36.5); MEAN CORPUSCULAR VOLUME 91.3 fl (80.0-96.0); MONO # 0.6 10^3/uL (0.0-0.8); MONO % 6.5 % (2.0-8.0); NEUTROPHILS # 4.3 10^3/uL (1.5-8.5); NEUTROPHILS % 45.3 % (36.0-66.0); PLATELET COUNT, AUTOMATED 415 10^3/uL (150-450); RED BLOOD COUNT 4.25 10^6/uL (4.30-6.10); WHITE BLOOD COUNT 9.5 10^3/uL (4.0-10.0)
[2023-09-02 18:47] LABS: LIPASE 44 U/L (12-53)
[2023-09-02 18:49] LABS: ACETONE/KETONE 0.11 MMOL/L (0.02-0.27)
[2023-09-02 18:50] LABS: ALBUMIN 3.9 G/DL (3.2-5.2); ALKALINE PHOSPHATASE 68 U/L (46-116); ALT/SGPT 14 U/L (7.0-40); AST/SGOT < 8 U/L (<34); BILIRUBIN,DIRECT 0.3 MG/DL (<0.4); BILIRUBIN,TOTAL 0.8 MG/DL (0.3-1.2); BLOOD UREA NITROGEN 21 MG/DL (9-23); CALCIUM LEVEL 9.2 MG/DL (8.5-10.1); CARBON DIOXIDE LEVEL 21 MMOL/L (20-31); CHLORIDE LEVEL 104 MMOL/L (98-107); CREATININE FOR GFR 0.78 MG/DL (0.70-1.30); GLOMERULAR FILTRATION RATE > 60.0 (>60); GLUCOSE, FASTING 185 MG/DL (60-100); MAGNESIUM LEVEL 2.2 MG/DL (1.8-2.4); POTASSIUM SERUM 3.8 MMOL/L (3.5-5.1); SODIUM LEVEL 138 MMOL/L (136-145); TOTAL PROTEIN 6.2 G/DL (5.7-8.2)
[2023-09-02] MEDS: ACETAMINOPHEN TAB 650MG DOSE (2X325MG) PO ONE (18:50)
[2023-09-02] MEDS: NS 500 ML IV ONE ×2 (18:50→19:46)
[2023-09-02 20:08] LABS: ABG BASE EXCESS -1.9 (-2.0-2.0); ABG HCO3 23.3 MMOL/L (22.0-26.0); ABG O2 SATURATION 98.2 % (95.0-99.0); ABG PARTIAL PRESSURE CO2 41.5 mmHg (35.0-45.0); ABG STANDARD HCO3 22.9 MMOL/L. (22.0-26.0); ABG TOTAL CO2 24.6 MMOL/L (22.0-29.0); ABG pH (ARTERIAL) 7.367 UNITS (7.350-7.450)
[2023-09-02 20:45] VITALS: BP 106/66; O2SAT 100
[2023-09-02 20:57] LABS: AMPHETAMINES LEVEL URINE NEGATIVE (NEGATIVE); BARBITURATES URINE NEGATIVE (NEGATIVE); BENZODIAZEPINES URINE NEGATIVE (NEGATIVE)
[2023-09-02 20:58] LABS: COCAINE METABOLITE URINE NEGATIVE (NEGATIVE); METHADONE URINE NEGATIVE (NEGATIVE); OPIATES URINE NEGATIVE (NEGATIVE); PHENCYCLIDINE URINE NEGATIVE (NEGATIVE)
[2023-09-02 20:59] LABS: CANNABINOIDS URINE POSITIVE (NEGATIVE)
[2023-09-02 21:59] VITALS: O2SAT 98
[2023-09-02] MEDS ORDERED: INSU100I24 INJ (22:14)
[2023-09-02] MEDS ORDERED: HOME MED LIST COMPLETE! XX SCH (22:15)
== END 2023-09-02 22:18 | disposition home or self-care (01) ==
LOC: M ED 17:45
DX: E10.649 Type 1 diabetes mellitus with hypoglycemia without coma (principal); Z79.4 Long term (current) use of insulin; Z88.0 Allergy status to penicillin

== ENCOUNTER 2023-10-22 08:32 | Emergency (ER) | payer OTHER ==
[~2023-10-22] VITALS: Ht 175.3 cm; Wt 63.6 kg
[~2023-10-22 08:32] MED LIST changes: +BASA100I INJ; +INSU100I24 INJ
[2023-10-22 08:49] VITALS: TEMP 97.9
[2023-10-22] MEDS: NS 1,000 ML IV ONE ×2 (09:02→09:15)
[2023-10-22] MEDS: HALOPERIDOL LACTATE 5MG/ML VIAL IV ONE (09:03)
[2023-10-22] MEDS: METOCLOPRAMIDE INJ 10MG/2ML VIAL IV ONE (09:03)
[2023-10-22 09:05] LABS: BASO # 0.2 10^3/uL (0.0-0.2); BASO % 2.5 % (0.0-1.0); EOS # 1.6 10^3/uL (0.0-0.5); HEMATOCRIT 42.7 % (42.0-52.0); HEMOGLOBIN 15.4 g/dl (13.5-17.5); LYMPH # 1.8 10^3/uL (1.5-5.0); LYMPH % 20.6 % (24.0-44.0); MEAN CORPUSCULAR HEMOGLOBIN 31.4 pg (27.0-33.0); MEAN CORPUSCULAR HGB CONC 36.1 g/dl (32.0-36.5); MEAN CORPUSCULAR VOLUME 87.1 fl (80.0-96.0); MONO # 0.6 10^3/uL (0.0-0.8); MONO % 6.4 % (2.0-8.0); NEUTROPHILS # 4.7 10^3/uL (1.5-8.5); NEUTROPHILS % 52.2 % (36.0-66.0); PLATELET COUNT, AUTOMATED 356 10^3/uL (150-450)
[2023-10-22 09:06] LABS: VENOUS BASE EXCESS 1.4 (-2.0-2.0); VENOUS HCO3 24.9 MMOL/L (23.0-27.0); VENOUS O2 SATURATION 81.4 % (60.0-80.0); VENOUS PARTIAL PRESSURE CO2 36.2 mmHg (38.0-50.0); VENOUS PARTIAL PRESSURE O2 43.8 mmHg (30.0-50.0); VENOUS PH 7.455 UNITS (7.330-7.430); VENOUS STANDARD HCO3 25.2 MMOL/L
[2023-10-22 09:24] LABS: LIPASE 29 U/L (12-53)
[2023-10-22 09:26] LABS: ALBUMIN 4.5 G/DL (3.2-5.2); ALKALINE PHOSPHATASE 76 U/L (46-116); ALT/SGPT 19 U/L (7.0-40); AST/SGOT 15 U/L (<34); BILIRUBIN,DIRECT 0.3 MG/DL (<0.4); BILIRUBIN,TOTAL 0.9 MG/DL (0.3-1.2); BLOOD UREA NITROGEN 17 MG/DL (9-23); CALCIUM LEVEL 10.2 MG/DL (8.5-10.1); CARBON DIOXIDE LEVEL 27 MMOL/L (20-31); CHLORIDE LEVEL 105 MMOL/L (98-107); CREATININE FOR GFR 0.82 MG/DL (0.70-1.30); GLOMERULAR FILTRATION RATE > 60.0 (>60); GLUCOSE, FASTING 141 MG/DL (60-100); POTASSIUM SERUM 4.6 MMOL/L (3.5-5.1); SODIUM LEVEL 140 MMOL/L (136-145); TOTAL PROTEIN 6.9 G/DL (5.7-8.2)
[2023-10-22 10:02] VITALS: O2SAT 100
[2023-10-22] MEDS ORDERED: ISOVUE-370 76% 100ML VIAL As Ordered ONE (11:44)
[2023-10-22] MEDS ORDERED: REGL10TA6 PO (11:47)
[2023-10-22 13:30] VITALS: BP 103/50
== END 2023-10-22 14:30 | disposition home or self-care (01) ==
LOC: M ED 08:32 → EDBD 08:32 → M ED 14:30
DX: R11.2 Nausea with vomiting, unspecified (principal); Z88.0 Allergy status to penicillin; E10.9 Type 1 diabetes mellitus without complications; Z87.891 Personal history of nicotine dependence; F12.90 Cannabis use, unspecified, uncomplicated
CPT/HCPCS: 74177; 80047; 80048; 80076; 82803; 83690; 85025; 96374; 96375; 99285; J1630; J2765; Q9967

== ENCOUNTER → 2023-11-01 | Outpatient (CLI) | payer OTHER ==
[2023-11-01 15:48] LABS: BASO # 0.2 10^3/uL (0.0-0.2); BASO % 1.5 % (0.0-1.0); EOS # 2.6 10^3/uL (0.0-0.5); HEMATOCRIT 40.9 % (42.0-52.0); HEMOGLOBIN 14.2 g/dl (13.5-17.5); LYMPH # 2.5 10^3/uL (1.5-5.0); LYMPH % 23.8 % (24.0-44.0); MEAN CORPUSCULAR HEMOGLOBIN 31.9 pg (27.0-33.0); MEAN CORPUSCULAR HGB CONC 34.7 g/dl (32.0-36.5); MEAN CORPUSCULAR VOLUME 91.9 fl (80.0-96.0); MONO # 0.7 10^3/uL (0.0-0.8); MONO % 6.6 % (2.0-8.0); NEUTROPHILS # 4.6 10^3/uL (1.5-8.5); NEUTROPHILS % 43.4 % (36.0-66.0); PLATELET COUNT, AUTOMATED 368 10^3/uL (150-450); RED BLOOD COUNT 4.45 10^6/uL (4.30-6.10); WHITE BLOOD COUNT 10.6 10^3/uL (4.0-10.0)
[2023-11-01 15:51] LABS: EOS % 24.4 % (0.0-3.0)
[2023-11-01 16:18] LABS: CREATININE, URINE 88.2 MG/DL; MAU/CREAT RATIO 4.5 MCG/MG (0.0-30.0)
[2023-11-01 16:19] LABS: C REACTIVE PROTEIN QUANTITATIV < 0.40 MG/DL (<1.0)
[2023-11-01 16:20] LABS: IRON (FE) 38 UG/DL (65-175)
[2023-11-01 16:40] LABS: HEMOGLOBIN A1c 8.9 % (4.0-6.0)
[2023-11-01 16:42] LABS: ALBUMIN 4.1 G/DL (3.2-5.2); ALKALINE PHOSPHATASE 68 U/L (46-116); ALT/SGPT 14 U/L (7.0-40); AST/SGOT 10 U/L (<34); BILIRUBIN,TOTAL 0.5 MG/DL (0.3-1.2); BLOOD UREA NITROGEN 20 MG/DL (9-23); CALCIUM LEVEL 9.1 MG/DL (8.5-10.1); CARBON DIOXIDE LEVEL 27 MMOL/L (20-31); CHLORIDE LEVEL 106 MMOL/L (98-107); CHOLESTEROL LEVEL 123 MG/DL (<200); CHOLESTEROL RISK RATIO 2.86 (<5); CREATININE FOR GFR 0.87 MG/DL (0.70-1.30); FERRITIN 224.8 NG/ML (10.5-307.3); FREE T4 0.85 NG/DL (0.89-1.76); GLOMERULAR FILTRATION RATE > 60.0 (>60); GLUCOSE, FASTING 268 MG/DL (60-100); HDL CHOLESTEROL 42.9 MG/DL (>40); LDL CHOLESTEROL 66.7 MG/DL (<100); NON-HDL-C 80.1 MG/DL; POTASSIUM SERUM 4.8 MMOL/L (3.5-5.1); SODIUM LEVEL 138 MMOL/L (136-145); THYROID STIMULATING HORMONE 4.248 uIU/ML (0.55-4.78); TOTAL 25(OH) VITAMIN D 30.2 NG/ML (20.0-100.0); TOTAL PROTEIN 6.3 G/DL (5.7-8.2); TRIGLYCERIDES LEVEL 67 MG/DL (<150); VITAMIN B12 LEVEL 646 PG/ML (211-911)
== END ==
LOC: M PLALAB 14:16
PROVIDERS: ATTEND Internal Medicine Hematology
DX: E10.65 Type 1 diabetes mellitus with hyperglycemia (principal); E55.9 Vitamin D deficiency, unspecified; E03.8 Other specified hypothyroidism; J45.909 Unspecified asthma, uncomplicated

== ENCOUNTER 2023-11-17 07:41 | Emergency (ER) | payer OTHER ==
[~2023-11-17] VITALS: Ht 175.3 cm; Wt 57.1 kg
[2023-11-17 08:39] LABS: BASO # 0.2 10^3/uL (0.0-0.2); BASO % 1.7 % (0.0-1.0); EOS # 0.6 10^3/uL (0.0-0.5); EOS % 7.1 % (0.0-3.0); HEMATOCRIT 42.9 % (42.0-52.0); HEMOGLOBIN 14.9 g/dl (13.5-17.5); LYMPH # 1.9 10^3/uL (1.5-5.0); LYMPH % 22.6 % (24.0-44.0); MEAN CORPUSCULAR HEMOGLOBIN 31.9 pg (27.0-33.0); MEAN CORPUSCULAR HGB CONC 34.7 g/dl (32.0-36.5); MEAN CORPUSCULAR VOLUME 91.9 fl (80.0-96.0); MONO # 0.6 10^3/uL (0.0-0.8); MONO % 7.2 % (2.0-8.0); NEUTROPHILS # 5.3 10^3/uL (1.5-8.5); NEUTROPHILS % 61.2 % (36.0-66.0); PLATELET COUNT, AUTOMATED 366 10^3/uL (150-450); RED BLOOD COUNT 4.67 10^6/uL (4.30-6.10); WHITE BLOOD COUNT 8.6 10^3/uL (4.0-10.0)
[2023-11-17] MEDS: NS 1,000 ML IV ONE ×2 (08:39→10:18)
[2023-11-17] MEDS: METOCLOPRAMIDE INJ 10MG/2ML VIAL IV ONE (08:39)
[2023-11-17 09:09] LABS: LIPASE 52 U/L (12-53)
[2023-11-17 09:12] LABS: ALBUMIN 4.5 G/DL (3.2-5.2); ALKALINE PHOSPHATASE 73 U/L (46-116); ALT/SGPT 19 U/L (7.0-40); AST/SGOT 16 U/L (<34); BILIRUBIN,DIRECT 0.3 MG/DL (<0.4); BILIRUBIN,TOTAL 0.8 MG/DL (0.3-1.2); BLOOD UREA NITROGEN 23 MG/DL (9-23); CALCIUM LEVEL 9.7 MG/DL (8.5-10.1); CARBON DIOXIDE LEVEL 32 MMOL/L (20-31); CHLORIDE LEVEL 105 MMOL/L (98-107); CREATININE FOR GFR 0.79 MG/DL (0.70-1.30); GLOMERULAR FILTRATION RATE > 60.0 (>60); GLUCOSE, FASTING 135 MG/DL (60-100); POTASSIUM SERUM 4.5 MMOL/L (3.5-5.1); SODIUM LEVEL 139 MMOL/L (136-145); TOTAL PROTEIN 7.1 G/DL (5.7-8.2)
[2023-11-17] MEDS: ONDANSETRON 4MG 2ML VIAL IV ONE (10:46)
[2023-11-17] MEDS: KETOROLAC 30 MG/ML 1ML VIAL IV ONE (10:46)
[2023-11-17] MEDS ORDERED: ONDA-282 PO (12:41)
[2023-11-17 12:48] VITALS: BP 149/75; TEMP 97.8; O2SAT 97
== END 2023-11-17 12:55 | disposition home or self-care (01) ==
LOC: M ED 07:41
DX: R11.2 Nausea with vomiting, unspecified (principal); R19.7 Diarrhea, unspecified; E10.9 Type 1 diabetes mellitus without complications; Z79.4 Long term (current) use of insulin; Z88.0 Allergy status to penicillin
CPT/HCPCS: 80048; 80076; 83690; 85025; 87507; 96361; 96374; 96375; 99284; J1885; J2405; J2765

== ENCOUNTER → 2024-02-22 | Outpatient (CLI) | payer OTHER | LOC: M CARPUL 13:09 | PROVIDERS: ATTEND Internal Medicine Hematology | DX: R06.2 Wheezing (principal) ==

== ENCOUNTER 2024-05-22 14:58 | Emergency (ER) | payer OTHER ==
[~2024-05-22] VITALS: Ht 167.6 cm; Wt 57.5 kg
[2024-05-22 15:24] VITALS: TEMP 96.9
[2024-05-22] MEDS: ONDANSETRON 4MG 2ML VIAL IV ONE (15:25)
[2024-05-22 15:35] LABS: BASO # 0.1 10^3/uL (0.0-0.2); EOS # 0.1 10^3/uL (0.0-0.5); HEMATOCRIT 43.6 % (42.0-52.0); HEMOGLOBIN 15.5 g/dl (13.5-17.5); LYMPH # 1.2 10^3/uL (1.5-5.0); LYMPH % 12.9 % (24.0-44.0); MEAN CORPUSCULAR HGB CONC 35.6 g/dl (32.0-36.5); MEAN CORPUSCULAR VOLUME 89.9 fl (80.0-96.0); MONO # 0.4 10^3/uL (0.0-0.8); MONO % 4.6 % (2.0-8.0); NEUTROPHILS # 7.3 10^3/uL (1.5-8.5); NEUTROPHILS % 80.4 % (36.0-66.0); PLATELET COUNT, AUTOMATED 386 10^3/uL (150-450); RED BLOOD COUNT 4.85 10^6/uL (4.30-6.10); WHITE BLOOD COUNT 9.1 10^3/uL (4.0-10.0)
[2024-05-22 15:36] LABS: VENOUS BASE EXCESS 3.6 (-2.0-2.0); VENOUS O2 SATURATION 63.5 % (60.0-80.0); VENOUS PARTIAL PRESSURE CO2 41.6 mmHg (38.0-50.0); VENOUS PARTIAL PRESSURE O2 30.5 mmHg (30.0-50.0); VENOUS PH 7.446 UNITS (7.330-7.430); VENOUS STANDARD HCO3 26.7 MMOL/L; VENOUS TOTAL CO2 29.3 MMOL/L (24.0-28.0)
[2024-05-22] MEDS: HALOPERIDOL LACTATE 5MG/ML VIAL IV ONE (15:44)
[2024-05-22 15:55] LABS: HEMOGLOBIN A1c 7.5 % (4.0-6.0)
[2024-05-22 16:09] LABS: LIPASE 24 U/L (12-53)
[2024-05-22 16:14] LABS: ALBUMIN 5.1 G/DL (3.2-5.2); ALKALINE PHOSPHATASE 87 U/L (40-129); ALT/SGPT 22 U/L (7.0-40); AST/SGOT 16 U/L (<34); BILIRUBIN,TOTAL 1.1 MG/DL (0.3-1.2); BLOOD UREA NITROGEN 22 MG/DL (9-23); CALCIUM LEVEL 10.9 MG/DL (8.5-10.1); CARBON DIOXIDE LEVEL 28 MMOL/L (20-31); CHLORIDE LEVEL 102 MMOL/L (98-107); CREATININE FOR GFR 0.85 MG/DL (0.70-1.30); GLOMERULAR FILTRATION RATE > 60.0 (>60); GLUCOSE, FASTING 125 MG/DL (60-100); POTASSIUM SERUM 4.4 MMOL/L (3.5-5.1); SODIUM LEVEL 141 MMOL/L (136-145); THYROID STIMULATING HORMONE 6.395 uIU/ML (0.55-4.78); TOTAL PROTEIN 8.2 G/DL (5.7-8.2)
[2024-05-22 16:22] LABS: ACETONE/KETONE 0.21 MMOL/L (0.02-0.27)
[2024-05-22 16:23] LABS: BILIRUBIN,DIRECT 0.3 MG/DL (<0.4)
[2024-05-22 16:45] VITALS: BP 95/51; O2SAT 98
== END 2024-05-22 17:13 | disposition home or self-care (01) ==
LOC: M ED 14:58
DX: F12.188 Cannabis abuse with other cannabis-induced disorder (principal); E10.9 Type 1 diabetes mellitus without complications; F90.9 Attention-deficit hyperactivity disorder, unspecified type; Z79.4 Long term (current) use of insulin; Z88.0 Allergy status to penicillin
CPT/HCPCS: 80047; 80048; 80076; 82010; 82803; 83036; 83690; 84443; 85025; 93005; 93041; 94760; 96374; 96375; 99284; J1630; J2405

== ENCOUNTER 2024-06-19 10:15 | Day surgery (SDC) | payer OTHER ==
[~2024-06-19] VITALS: Ht 175.3 cm; Wt 57.6 kg
[~2024-06-19 10:15] MED LIST changes: +ERGO500029 PO; +INSU100I16 SC; +PANT40TA29 PO
[2024-06-19] MEDS ORDERED: DEXTROSE 50% 50ML SYRINGE IV PRN (11:05)
[2024-06-19] MEDS ORDERED: GLUCAGON INJ 1MG VIAL SC PRN (11:05)
[2024-06-19] MEDS ORDERED: GLUCOSE 4 GM CHEW PO PRN (11:05)
[2024-06-19] MEDS: INSULIN LISPRO (NovoLOG) PER UNIT SC PRN (11:13)
[2024-06-19 11:59] VITALS: TEMP 96.3
[2024-06-19 12:50] VITALS: BP 102/61; O2SAT 98
== END 2024-06-19 12:51 | disposition home or self-care (01) ==
LOC: M OPP 10:15
PROVIDERS: ATTEND Internal Medicine Gastroenterology
DX: K64.8 Other hemorrhoids (principal); R19.4 Change in bowel habit; R92.1 Mammographic calcification found on diagnostic imaging of breast; R10.84 Generalized abdominal pain; K29.70 Gastritis, unspecified, without bleeding; R10.13 Epigastric pain; R11.2 Nausea with vomiting, unspecified
CPT/HCPCS: 43239; 45380; 88305; J1815

== ENCOUNTER 2024-07-13 05:37 | Emergency (ER) | payer OTHER ==
[~2024-07-13] VITALS: Ht 175.3 cm; Wt 57.0 kg
[2024-07-13 05:44] VITALS: TEMP 97.2
[2024-07-13] MEDS: ONDANSETRON 4MG 2ML VIAL IV ONE (06:51)
[2024-07-13] MEDS: ACETAMINOPHEN *IV* 1,000 MG in IV 1 EA IV ONE (06:51)
[2024-07-13 07:04] LABS: VENOUS BASE EXCESS -1.3 (-2.0-2.0); VENOUS HCO3 25.4 MMOL/L (23.0-27.0); VENOUS O2 SATURATION 75.8 % (60.0-80.0); VENOUS PARTIAL PRESSURE CO2 50.4 mmHg (38.0-50.0); VENOUS PARTIAL PRESSURE O2 43.4 mmHg (30.0-50.0); VENOUS PH 7.321 UNITS (7.330-7.430); VENOUS STANDARD HCO3 22.9 MMOL/L
[2024-07-13 07:12] LABS: HEMATOCRIT 38.4 % (42.0-52.0); HEMOGLOBIN 13.4 g/dl (13.5-17.5); MEAN CORPUSCULAR HEMOGLOBIN 31.9 pg (27.0-33.0); MEAN CORPUSCULAR HGB CONC 34.9 g/dl (32.0-36.5); MEAN CORPUSCULAR VOLUME 91.4 fl (80.0-96.0); PLATELET COUNT, AUTOMATED 281 10^3/uL (150-450); WHITE BLOOD COUNT 6.4 10^3/uL (4.0-10.0)
[2024-07-13 07:35] LABS: BASOPHILS 4 % (0-1); EOSINOPHILS 11 % (0-3); LYMPHOCYTES 39 % (16-44); MONOCYTES 9 % (0-5); NEUTROPHILS 37 % (28-66); PLATELET ESTIMATE NORMAL (NORMAL)
[2024-07-13 07:36] LABS: BLOOD UREA NITROGEN 14 MG/DL (9-23); CALCIUM LEVEL 8.9 MG/DL (8.5-10.1); CARBON DIOXIDE LEVEL 27 MMOL/L (20-31); CHLORIDE LEVEL 107 MMOL/L (98-107); CREATININE FOR GFR 0.81 MG/DL (0.70-1.30); GLOMERULAR FILTRATION RATE > 90.0 (>60); GLUCOSE, FASTING 51 MG/DL (60-100); MAGNESIUM LEVEL 2.1 MG/DL (1.8-2.4); POTASSIUM SERUM 3.8 MMOL/L (3.5-5.1); SODIUM LEVEL 145 MMOL/L (136-145)
[2024-07-13] MEDS: NS (Normal Saline) 0.9% 1,000 ML IV ONE (07:55)
[2024-07-13] MEDS: NS 500 ML IV ONE (08:45)
[2024-07-13 10:00] VITALS: BP 117/80
[2024-07-13] MEDS ORDERED: HOLTER MONITOR XX (11:21)
[2024-07-13 11:30] VITALS: O2SAT 99
== END 2024-07-13 11:43 | disposition home or self-care (01) ==
LOC: EDBD 05:37 → M ED 05:37
DX: S01.01XA Laceration without foreign body of scalp, initial encounter (principal); R55 Syncope and collapse; S06.0XAA Concussion with loss of consciousness status unknown, initial encounter; E10.649 Type 1 diabetes mellitus with hypoglycemia without coma; W19.XXXA Unspecified fall, initial encounter; Y92.89 Other specified places as the place of occurrence of the external cause; Y93.89 Activity, other specified; Y99.9 Unspecified external cause status; K21.9 Gastro-esophageal reflux disease without esophagitis; Z88.1 Allergy status to other antibiotic agents; Z79.4 Long term (current) use of insulin
CPT/HCPCS: 12001; 70450; 72125; 80048; 82010; 82803; 83605; 83735; 85025; 93005; 93041; 96374; 96375; 99285; J0131; J2405

== ENCOUNTER 2024-07-19 09:08 | Emergency (ER) | payer OTHER ==
[~2024-07-19] VITALS: Ht 175.3 cm; Wt 60.5 kg
[~2024-07-19 09:08] MED LIST changes: +HOLTER MONITOR XX
[2024-07-19 09:13] VITALS: TEMP 97.9
[2024-07-19 10:45] VITALS: BP 112/65; O2SAT 100
== END 2024-07-19 11:48 | disposition home or self-care (01) ==
LOC: M ED 09:08
DX: Z48.02 Encounter for removal of sutures (principal); E10.9 Type 1 diabetes mellitus without complications; K21.9 Gastro-esophageal reflux disease without esophagitis; Z79.4 Long term (current) use of insulin; Z79.899 Other long term (current) drug therapy; Z88.0 Allergy status to penicillin

== ENCOUNTER 2024-12-04 20:37 | Observation (INO) | payer OTHER ==
[~2024-12-04] VITALS: Ht 175.3 cm; Wt 54.1 kg
[2024-12-04] MEDS: GASTROGRAFIN SOLUTION 30ML PO SCH
[~2024-12-04 20:37] MED LIST changes: -IBUP-1022 PO; +IBUP600T42 PO; +INSU100V3 SUBQ; +INSU1CAR5
[2024-12-04 22:02] LABS: BASO # 0.1 10^3/uL (0.0-0.2); BASO % 1.0 % (0.0-1.0); EOS # 0.1 10^3/uL (0.0-0.5); EOS % 0.7 % (0.0-3.0); LYMPH # 1.5 10^3/uL (1.5-5.0); LYMPH % 15.2 % (24.0-44.0); MONO # 0.6 10^3/uL (0.0-0.8); MONO % 6.5 % (2.0-8.0); NEUTROPHILS # 7.4 10^3/uL (1.5-8.5); NEUTROPHILS % 76.3 % (36.0-66.0); PLATELET COUNT, AUTOMATED 423 10^3/uL (150-450)
[2024-12-04 22:27] LABS: ALT/SGPT 36 U/L (7.0-40); AST/SGOT 22 U/L (<34); CALCIUM LEVEL 10.7 MG/DL (8.5-10.1); CARBON DIOXIDE LEVEL 27 MMOL/L (20-31); CHLORIDE LEVEL 100 MMOL/L (98-107); CREATININE FOR GFR 0.94 MG/DL (0.70-1.30); GLOMERULAR FILTRATION RATE > 90.0 (>60); POTASSIUM SERUM 4.4 MMOL/L (3.5-5.1); SODIUM LEVEL 142 MMOL/L (136-145)
[2024-12-04] MEDS ORDERED: ISOVUE-370 76% 100 ML VIAL As Ordered ONE (22:46)
[2024-12-04] MEDS: ONDANSETRON 4MG 2ML VIAL IV ONE (22:56)
[2024-12-04] MEDS: NS (Normal Saline) 0.9% 1,000 ML IV ONE (22:56)
[2024-12-04] MEDS: MORPHINE 2 MG/ML 1 ML VIAL IV ONE (22:57)
[2024-12-05 02:16] LABS: KETONE, URINE AUTO RFX 2+ mg/dL (NEGATIVE); LEUKOCYTE ESTERASE UR AUTO RFX NEGATIVE (NEGATIVE); MUCUS, URINE RFX LARGE (NEGATIVE); NITRITE, URINE AUTO RFX NEGATIVE (NEGATIVE); RBC, URINE AUTO RFX 1 /HPF (0-3); SQUAM EPITHELIAL CELL UR AURFX 0 /HPF (0-6); WBC, URINE AUTO RFX 2 /HPF (0-3)
[2024-12-05 03:08] LABS: AMPHETAMINES LEVEL URINE NEGATIVE (NEGATIVE); BARBITURATES URINE NEGATIVE (NEGATIVE); BENZODIAZEPINES URINE NEGATIVE (NEGATIVE); COCAINE METABOLITE URINE NEGATIVE (NEGATIVE); METHADONE URINE NEGATIVE (NEGATIVE); PHENCYCLIDINE URINE NEGATIVE (NEGATIVE)
[2024-12-05 03:09] LABS: CANNABINOIDS URINE POSITIVE (NEGATIVE); OPIATES URINE POSITIVE (NEGATIVE)
[2024-12-05] MEDS: traMADol 50 MG TAB (HOME DOSE PACK) PO ONE (03:40)
[2024-12-05] MEDS: NS (Normal Saline) 0.9% 1,000 ML IV ONE ×2 (03:55→04:19)
[2024-12-05] MEDS: NS 500 ML IV ONE (04:18)
[2024-12-05] MEDS: HALOPERIDOL LACTATE 5 MG/ML VIAL IV ONE (04:23)
[2024-12-05 04:45] LABS: VENOUS BASE EXCESS -10.7 (-2.0-2.0); VENOUS HCO3 14.8 MMOL/L (23.0-27.0); VENOUS O2 SATURATION 83.9 % (60.0-80.0); VENOUS PARTIAL PRESSURE CO2 31.9 mmHg (38.0-50.0); VENOUS PARTIAL PRESSURE O2 52.4 mmHg (30.0-50.0); VENOUS PH 7.283 UNITS (7.330-7.430); VENOUS STANDARD HCO3 15.9 MMOL/L; VENOUS TOTAL CO2 15.7 MMOL/L (24.0-28.0)
[2024-12-05 05:17] LABS: CALCIUM LEVEL 9.3 MG/DL (8.5-10.1); CARBON DIOXIDE LEVEL 17 MMOL/L (20-31); CHLORIDE LEVEL 96 MMOL/L (98-107); CREATININE FOR GFR 0.78 MG/DL (0.70-1.30); GLOMERULAR FILTRATION RATE > 90.0 (>60); POTASSIUM SERUM 5.0 MMOL/L (3.5-5.1); SODIUM LEVEL 134 MMOL/L (136-145)
[2024-12-05] MEDS: HumuLIN R (REGULAR) INSULIN (NovoLIN R) **100 U/ML** PER UNIT IV ONE (05:47)
[2024-12-05] MEDS ORDERED: INSULIN LISPRO (NovoLOG) PER UNIT SC ONE ×2 (07:00)
[2024-12-05] MEDS ORDERED: ONDANSETRON 4MG 2ML VIAL IV PRN (07:15)
[2024-12-05] MEDS ORDERED: DEXTROSE 50% 50 ML SYRINGE IV PRN (07:15)
[2024-12-05] MEDS ORDERED: GLUCAGON INJ 1 MG VIAL SC PRN (07:15)
[2024-12-05] MEDS ORDERED: GLUCOSE 4 GM CHEW PO PRN (07:15)
[2024-12-05] MEDS: INSULIN LISPRO (NovoLOG) PER UNIT SC SCH ×2 (07:33→12:25)
[2024-12-05] MEDS ORDERED: PROM12.56 PO (09:27)
[2024-12-05] MEDS ORDERED: METO10TA3 PO (09:28)
[2024-12-05] MEDS ORDERED: PANT-23 PO (09:28)
[2024-12-05] MEDS ORDERED: HOME MED LIST COMPLETE! XX SCH (09:30)
[2024-12-05 09:57] LABS: VENOUS BASE EXCESS -5.1 (-2.0-2.0); VENOUS HCO3 19.5 MMOL/L (23.0-27.0); VENOUS O2 SATURATION 94.9 % (60.0-80.0); VENOUS PARTIAL PRESSURE CO2 35.4 mmHg (38.0-50.0); VENOUS PARTIAL PRESSURE O2 75.0 mmHg (30.0-50.0); VENOUS PH 7.358 UNITS (7.330-7.430); VENOUS STANDARD HCO3 20.2 MMOL/L; VENOUS TOTAL CO2 20.5 MMOL/L (24.0-28.0)
[2024-12-05] MEDS: NS 0.45% 1,000 ML IV SCH (10:21)
[2024-12-05] MEDS: ENOXAPARIN 40 MG/0.4 ML SYRINGE (J1650 PER 10MG) SC SCH (10:21)
[2024-12-05 10:34] LABS: CALCIUM LEVEL 9.4 MG/DL (8.5-10.1); CARBON DIOXIDE LEVEL 21 MMOL/L (20-31); CHLORIDE LEVEL 100 MMOL/L (98-107); CREATININE FOR GFR 0.76 MG/DL (0.70-1.30); GLOMERULAR FILTRATION RATE > 90.0 (>60); POTASSIUM SERUM 4.2 MMOL/L (3.5-5.1); SODIUM LEVEL 139 MMOL/L (136-145)
[2024-12-05 10:39] LABS: ACETONE/KETONE 3.53 MMOL/L (0.02-0.27)
[2024-12-05 13:02] LABS: CALCIUM LEVEL 9.0 MG/DL (8.5-10.1); CARBON DIOXIDE LEVEL 19 MMOL/L (20-31); CHLORIDE LEVEL 100 MMOL/L (98-107); CREATININE FOR GFR 0.76 MG/DL (0.70-1.30); GLOMERULAR FILTRATION RATE > 90.0 (>60); POTASSIUM SERUM 4.6 MMOL/L (3.5-5.1); SODIUM LEVEL 139 MMOL/L (136-145)
[2024-12-05 13:45] VITALS: BP 102/58; TEMP 97.6; O2SAT 97
[2024-12-05 16:54] LABS: ESTIMATED AVERAGE GLUCOSE 194.0 MG/DL (60-110)
[2024-12-05] MEDS ORDERED: INSULIN LISPRO (NovoLOG) PER UNIT SC SCH (17:00)
== END 2024-12-05 16:45 | disposition left against medical advice (07) ==
LOC: M ED 20:37 → INTOOBSV 12-05 06:27 → M ED INP 12-05 06:27 → M PCU 12-05 13:50
PROVIDERS: ADMIT Student in an Organized Health Care Education/Training Program; ATTEND Student in an Organized Health Care Education/Training Program
DX: E10.65 Type 1 diabetes mellitus with hyperglycemia (principal); Z53.21 Procedure and treatment not carried out due to patient leaving prior to being seen by health care provider; J45.909 Unspecified asthma, uncomplicated; K21.9 Gastro-esophageal reflux disease without esophagitis; E87.20 Acidosis, unspecified; E87.1 Hypo-osmolality and hyponatremia; Z79.4 Long term (current) use of insulin; Z79.899 Other long term (current) drug therapy; R11.2 Nausea with vomiting, unspecified; F12.188 Cannabis abuse with other cannabis-induced disorder
CPT/HCPCS: 36415; 71045; 74177; 80048; 80076; 80307; 81001; 82010; 82803; 83036; 83690; 85025; 93041; 94760; 96374; 96375; 96376; 99285; J1630; J1650; J1815; J2405; Q9963; Q9967